=== PATIENT | female | born 1970 | race American Indian/Alaskan Native ===

== ENCOUNTER 2017-02-13 11:11 | Emergency (ER) | payer SELFPAY ==
[2017-02-13 11:25] VITALS: BP 133/95
[2017-02-13] MEDS ORDERED: MOTRIN PO ONE (14:21)
--- NOTE | 2017-02-13 14:42 | Emergency Department Report ---
ED Extremity Problem HPI - General Chief complaint: Extremity Injury, Upper Stated complaint: RIGHT ARM/LEFT ELBOW Time Seen by Provider: 02/13/17 14:06 Source: patient Mode of arrival: Ambulatory Limitations: No Limitations - History of Present Illness Initial comments: PT states she was at work and a case fell on her right arm. PT states the force of this pushed her back and her L elbow his hit the latch lock. PT has not taken any medication for this. PT states it hurts to move her left elbow and her elbow is tender, Complaint: extremity pain -: Sudden Time: 09:30 Location: left, right, upper extremity History of Same: No Radiation: none Severity scale (0 -10): 8 Quality: stabbing, aching, sharp Consistency: constant Improves with: nothing Worsens with: palpation Associated Symptoms: denies other symptoms - Related Data Previous Rx's Medication Instructions Recorded Last Taken Type Ibuprofen Oral Liqd [Motrin] 600 mg PO TID PRN #1 bottle 02/13/17 Unknown Rx Allergies Allergy/AdvReac Type Severity Reaction Status Date / Time egg Allergy Rash Verified 02/13/17 11:26 codeine AdvReac Unknown Verified 02/13/17 11:25 ED Review of Systems ROS: Stated complaint: RIGHT ARM/LEFT ELBOW Other details as noted in HPI Comment: All other systems reviewed and negative Constitutional: no symptoms reported Respiratory: no symptoms reported Gastrointestinal: denies: abdominal pain Musculoskeletal: as per HPI Skin: denies: change in color Neurological: denies: weakness, numbness, paresthesias ED Past Medical Hx - Past Medical History Hx Hypertension: Yes Additional medical history: High cholesterol - Surgical History Past Surgical History?: Yes Additional Surgical History: R ankle surgery - Social History Smoking Status: Never Smoker Substance Use Type: None - Medications Home Medications: Home Medications Medication Instructions Recorded Confirmed Last Taken Type Ibuprofen Oral Liqd [Motrin] 600 mg PO TID PRN #1 bottle 02/13/17 Unknown Rx ED Physical Exam - General Limitations: No Limitations General appearance: alert, in no apparent distress - Head Head exam: Present: atraumatic, normocephalic, normal inspection - Eye Eye exam: Present: normal appearance, PERRL. Absent: conjunctival injection - ENT ENT exam: Present: normal exam - Neck Neck exam: Present: normal inspection. Absent: tenderness - Respiratory Respiratory exam: Present: normal lung sounds bilaterally. Absent: respiratory distress - Cardiovascular Cardiovascular Exam: Present: regular rate, normal rhythm. Absent: normal heart sounds - Extremities Exam Extremities exam: Present: normal inspection, full ROM, tenderness, normal capillary refill - Expanded Upper Extremity Exam Left Upper Arm exam: Present: normal inspection Elbow exam: Present: normal inspection, full ROM, tenderness. Absent: swelling , abrasion Forearm Wrist exam: Present: normal inspection, full ROM. Absent: tenderness Hand Wrist exam: Present: normal inspection, full ROM Right Shoulder Exam: Present: normal inspection, full ROM Upper Arm exam: Present: normal inspection, full ROM Elbow exam: Present: normal inspection, full ROM Forearm Wrist exam: Present: normal inspection, tenderness, swelling (mid). Absent: abrasion, laceration Hand Wrist exam: Present: normal inspection, full ROM. Absent: tenderness - Back Exam Back exam: Present: normal inspection, full ROM - Neurological Exam Neurological exam: Present: alert, oriented X3, normal gait - Psychiatric Psychiatric exam: Present: normal affect, normal mood - Skin Skin exam: Present: warm, dry, intact ED Course Vital Signs 02/13/17 11:17 Temperature 98.7 F Pulse Rate 86 Respiratory 16 Rate Blood Pressure 133/95 O2 Sat by Pulse 100 Oximetry - Reevaluation(s) Reevaluation #1: 02/13/17 14:47 PT can not take pills, liquid medication ordered. Reevaluation #2: 02/13/17 17:05 PT aware of XR results and plan of care. PT aware she will need to follow up with ortho prior to resuming [employer] - Pulse Oximetry Interpretation Digit-Finger Initial Pulse Oximetry Readin Actions Taken: none ED Medical Decision Making - Radiology Data Radiology results: report reviewed XR L elbow- NAP XR R FA- NAP - Differential Diagnosis fracture, strain, contusion Critical Care Time: No Critical care attestation.: If time is entered above; I have spent that time in minutes in the direct care of this critically ill patient, excluding procedure time. ED Disposition Clinical Impression: Left elbow pain Contusion of right forearm, initial encounter Qualifiers: Encounter type: initial encounter Qualified Code(s): S50.11XA - Contusion of right forearm, initial encounter Disposition: DISCHARGED TO HOME OR SELFCARE Is pt being admited?: No Does the pt Need Aspirin: No Condition: Stable Instructions: Contusion in Adults (ED), Elbow Sprain (ED), RICE Therapy (ED) Additional Instructions: Follow up with your unit tomorrow. Work excuse will be give for heavy lifting. Prescriptions: Ibuprofen Oral Liqd [Motrin] 600 mg PO TID PRN #1 bottle PRN Reason: Pain Referrals: PRIMARY CARE, [Primary Care Provider] - 3-5 Days KANU QUIROGA JR, MD [Staff Physician] - 3-5 Days LORRAINE VEGA MD [Staff Physician] - 3-5 Days Forms: Work/School Release Form(ED) Time of Disposition: 16:53
--- NOTE | 2017-02-13 16:29 | XRay Report ---
FINAL REPORT EXAM: XR FOREARM RT HISTORY: pain sp injury TECHNIQUE: Two views of the right forearm PRIORS: None. FINDINGS: No fracture is identified. The joint spaces are within normal limits. No focal bony lesion identified. No radiopaque foreign body seen. IMPRESSION: Negative no acute abnormality.
--- NOTE | 2017-02-13 16:30 | XRay Report ---
FINAL REPORT EXAM: XR ELBOW 3 LT HISTORY: pain sp injury TECHNIQUE: Two views left elbow PRIORS: None. FINDINGS: No fracture identified. No dislocation seen. No evidence of joint effusion. Joint spaces are within normal limits. IMPRESSION: Negative elbow series
== END 2017-02-13 17:26 | disposition home or self-care (01) ==
LOC: ED 11:11
DX: S50.11XA Contusion of right forearm, initial encounter (principal); M25.522 Pain in left elbow; I10 Essential (primary) hypertension; E78.00 Pure hypercholesterolemia, unspecified; Z88.6 Allergy status to analgesic agent; Z91.012 Allergy to eggs; W18.39XA Other fall on same level, initial encounter; Y93.89 Activity, other specified; Y99.8 Other external cause status; Y92.89 Other specified places as the place of occurrence of the external cause
CPT/HCPCS: 99284